=== PATIENT | female | born 1995 | race African-American/Black ===

== ENCOUNTER 2020-10-02 02:22 | Emergency (ER) | payer BC, SELFPAY ==
[2020-10-02] MEDS ORDERED: Ketorolac Tromethamine 30 MG/ML VIAL ONE (03:49)
== END 2020-10-02 04:20 | disposition home or self-care (01) ==
LOC: ERS 02:22
DX: K08.89 Other specified disorders of teeth and supporting structures (principal); F17.290 Nicotine dependence, other tobacco product, uncomplicated
CPT/HCPCS: 96372; 99282; J1885